=== PATIENT | male | born 1960 | race African-American/Black ===

== ENCOUNTER 2017-01-23 11:12 | Inpatient (IN) ==
--- NOTE | 2017-01-23 12:54 | Emergency Department Note ---
Rj Guerrero Brittany, am scribing for, and in the presence of, Carissa Echeverria DO 12:50. IJuwan Debra, DO, personally performed the services described in this documentation, ascribed by Lynne De La Rosa in my presence, and it is both accurate and complete . Arrival - Arrival Chief Complaint: Non-Specific Stated Complaint: OFF BALANCE/SOB ED Nursing Triage Note: Pt c/o left arm/leg weakness, SOB, lower back pain, and unsteady gait x 1 month. Mode of Arrival: Wheelchair Limitations: No Limitations Source: Patient, RN Notes Reviewed Time Seen by Provider: 01/23/17 12:40 - History of Present Illness HPI Narrative: Patient is a 56 y/o black male presenting to the ED with c/o right upper and lower extremity weakness with an onset of 2 weeks, worsening today. Patient states that he has been "lightheaded" and having to "throw" his right leg when walking due to weakness making ambulation difficult for him. He reports that he thought this weakness would subside, but worsened over the past week after having some upper respiratory symptoms. He complains of having some posterior neck pain and lower back pain that is intermittent, occurring mostly while at work. Patient denies history of NE or CVA. In room upon exam patient is noted to have equal bilateral motor strength that is grossly intact. No deficits noted. No other complaint/pain. Onset (ago): week(s) (2) Allergies/Adverse Reactions: Allergies Allergy/AdvReac Type Severity Reaction Status Date / Time No Known Allergies Allergy Verified 01/23/17 11:20 Home Medications: Home Medications Medication Instructions Recorded Confirmed Type Lisinopril/Hydrochlorothiazide 1 each PO DAILY 01/23/17 01/23/17 History [Lisinopril-Hctz 10-12.5 mg Tab] Meloxicam 15 mg PO DAILY 01/23/17 01/23/17 History Tamsulosin [Flomax] 0.4 mg PO QPM 01/23/17 01/23/17 History Review of System - Review of System 12 point system: reviewed and no additional remarkable complaints except as stated - Review of System Constitutional: Absent: chills, fever Eyes: Absent: vision change Head/Ears/Nose/Throat: Absent: nasal drainage, sore throat Respiratory: Absent: respiratory distress Cardiovascular: Absent: chest pain Gastrointestinal: Absent: abdominal pain, nausea, vomiting, diarrhea, constipation Genitourinary male: Absent: urgency, dysuria, frequency Musculoskeletal: Present: lower back pain, neck pain. Absent: arm pain, leg pain Skin: Absent: rash Neurological: Present: as per HPI, weakness, abnormal gait Psychiatric: Absent: anxiety, depression Hematological/Lymphatic: Absent: easy bleeding, easy bruising Medical,Surgical,& Family Hx - Medical History Cardio: History of: Hypertension - Social History Smoking Status: Never smoker Exam Vital Signs: Vital Signs Temperature 97.9 F 01/23/17 11:23 Pulse Rate 88 01/23/17 11:23 Respiratory Rate 18 01/23/17 11:23 Blood Pressure 156/85 01/23/17 11:23 O2 Sat by Pulse Oximetry 97 01/23/17 11:23 - General General appearance: alert, in no apparent distress, obese (mildly) - Head Head exam: Present: atraumatic, normocephalic, normal inspection - Eye Eye exam: Present: normal appearance, PERRL, EOMI - ENT ENT exam: Present: normal exam, normal oropharynx, mucous membranes moist - Neck Neck exam: Present: normal inspection, full ROM, trachea midline - Chest Chest inspection: Present: normal inspection, symmetric chest wall rise - Respiratory Respiratory exam: Present: normal lung sounds bilaterally. Absent: rales, rhonchi, wheezes - Cardiovascular Cardiovascular exam: Present: regular rate, normal rhythm, normal heart sounds. Absent: murmur, rubs, gallop - Abdominal Exam Abdominal exam: Present: soft, normal bowel sounds. Absent: distention, tenderness - Extremities Exam Extremities exam: Present: normal inspection, full ROM. Absent: tenderness - Back Exam Back exam: Present: normal inspection, full ROM. Absent: tenderness - Neurological Exam Neurological exam: Present: alert, oriented X3, CN II-XII intact. Absent: motor sensory deficit (patient has equal motor strengths bilaterally to upper and lower extremities, no deficits noted) - Psychiatric Psychiatric exam: Present: normal affect, normal mood - Skin Skin exam: Present: warm, dry, intact, normal color Course Course Narrative: spoke with joint cleaning machine operator who will admit pt to hospitlaist service. Results - Labs CBC & BMP: 01/23/17 13:28 01/23/17 13:28 Lab Results: I have reviewed the patients labs Labs: Laboratory Tests 01/23/17 01/23/17 01/23/17 13:28 13:28 13:28 WBC 9.3 RBC 4.80 Hgb 14.2 Hct 43.3 Plt Count 245 MPV 9.1 L INR 1.0 PT Patient/Control Mix 10.7 Circ Anticoag PTT 26.6 Sodium 139 Potassium 4.0 Chloride 104 Carbon Dioxide 28 BUN 16 Creatinine 0.80 Glucose 97 Total Creatine Kinase 590 H CK-MB (CK-2) 7.8 H CK and CKMB Interp 1.3 Troponin I < 0.015 Globulin 4.2 H Albumin/Globulin Ratio 0.8 L - EKG EKG results: interpreted by ERMD, no acute changes - Diagnostic Findings Procedure: Chest x-ray: image reviewed by me Disposition Clinical Impression: Elevated CK, Dizziness Case discussed with: patient, patient's family Disposition: Still a Patient Condition: Stable Time of Disposition: 14:52
[2017-01-23 13:35] LABS: Basophils % 0.3 % (0.0-0.8); Eosinophils # 0.2 10*3/uL (0.0-0.87); Hematocrit 43.3 VOL% (42.0-52.0); Hemoglobin 14.2 GM/DL (14.0-18.0); Immature Granulocytes % 0.2 %; Immature Granulocytes Absolute 0.02 #; Lymphocytes # 2.3 10*3/uL (1.4-4.0); Lymphocytes % 24.4 % (21.2-54.2); Mean Corpuscular HGB Conc 32.8 GM/DL (32-36); Mean Corpuscular Hemoglobin 30 PG (27-34); Mean Corpuscular Volume 90.2 FL (87-102); Mean Platelet Volume 9.1 FL (9.6-12.0); Monocytes # 0.6 10*3/uL (0.11-0.8); Neutrophils # 6.2 10*3/uL (1.4-7.4); Neutrophils % 67.1 % (38.7-73.9); Platelet Count 245 T/CUMM (130-400); Red Cell Distribution Width 13.1 % (9.3-17.3); White Blood Count 9.3 T/CUMM (4-12)
--- NOTE | 2017-01-23 13:43 | CT Report ---
History: Right-sided weakness. Unsteady gait Date: 01/23/2017 Study: CT head without contrast Comparison exam: No previous head CT available Transaxial CT sections were obtained through the head without IV contrast. This CT exam was performed using one or more the following dose reduction techniques: Automated exposure control, adjustment of the MA and/or KV according to patient size, or use of iterative reconstruction technique. The exam was performed on an outpatient basis through the emergency room. The ventricles are midline in position without evidence of hydrocephalus. There is no definite mass or parenchymal hemorrhage on this noncontrast study. There is no gross CT evidence of acute cortical stroke. There is no extra-axial hematoma. There is no acute abnormality of the calvarium. Impression: No acute intracranial abnormalities identified. PROCEDURE INTERPRETED AT [facility] DEPARTMENT OF RADIOLOGY Final Report Signed by: Dr. Rena Pyle
[2017-01-23 13:45] LABS: PT Patient Result 10.7 SECS; Partial Thromboplastin Time 26.6 SECS (0-40)
[2017-01-23 14:05] LABS: Alanine Aminotransferase 38 U/L (16-61); Albumin 3.7 G/DL (3.4-5.0); Alkaline Phosphatase 70 U/L (45-117); Aspartate Amino Transferase 24 U/L (0-37); Bilirubin,Total < 0.39 MG/DL (0.2-1.0); Blood Urea Nitrogen 16 MG/DL (7-18); CKMB % 1.3 %; Calcium 8.9 MG/DL (8.5-10.1); Glucose 97 MG/DL (74-106); Osmolality,Calculated 277.5 MOS/KG (273-304); Sodium 139 MMOL/L (136-145); Total Protein 7.9 G/DL (6.4-8.3); Troponin I Only < 0.015 NG/ML (0.00-0.045)
[2017-01-23] MEDS ORDERED: KETOROLAC 30 MG/1 ML VIAL IM STA (14:23)
[2017-01-23] MEDS ORDERED: MECLIZINE 25 MG TABLET PO STA (14:52)
[2017-01-23] MEDS ORDERED: LABETALOL 20 MG/4 ML SYRINGE IV PRN (15:19)
[2017-01-23] MEDS ORDERED: MECLIZINE 25 MG TABLET ONE (15:37)
--- NOTE | 2017-01-23 15:43 | XRay Report ---
History: Shortness of breath. History of hypertension Date: 01/23/2017 Study: Chest x-ray AP portable Comparison exam: No previous chest x-ray currently available for comparison purposes. The cardiac silhouette is upper normal in size. There is no mediastinal mass. The pulmonary vasculature is not engorged. The lungs and pleural spaces are clear. There is mild thoracic spondylosis. Impression: No acute cardiopulmonary process PROCEDURE INTERPRETED AT [facility] DEPARTMENT OF RADIOLOGY Final Report Signed by: Dr. Rena Pyle
[2017-01-23 16:00] LABS: Risk Ratio 4.16; VLDL CHOLESTEROL 20.6 MG/DL
--- NOTE | 2017-01-23 16:22 | Hospitalist History & Physical ---
<Azra Marques - Last Filed: 01/23/17 15:39> Assessment and Plan - Time spent with patient Time spent with patient: Greater than 30 minutes (1) Right-sided muscle weakness Status: Acute Assessment and plan: Mr. Prince is a 56-year-old -[place] male with history of hypertension , chronic migraines, chronic recurrent UTIs presenting to the ED with a 2 week history of progressive unsteady gait and weakness on the right upper and lower extremity. He has complained of migraines for the last month and low back pain starting 2 weeks ago. He did have a viral illness that preceded this weakness. Patient will undergo MRI of the head and low back tomorrow. Consult neurology for evaluation. Repeat labs in the morning. Restart his home hypertensive medications. He is being admitted by Dr. King and further recommendations to follow. Current Visit: Yes (2) Unsteady gait Status: Acute Current Visit: Yes (3) Migraines Status: Acute Current Visit: Yes (4) Low back pain Status: Acute Current Visit: Yes (5) Elevated CK Status: Acute Current Visit: Yes (6) Dizziness Status: Acute Current Visit: Yes History of Present Illness Chief complaint: Right-sided weakness and unsteady gait History of present illness: Mr. Prince is a 56 year old male with history of hypertension, chronic migraines, chronic UTIs presenting to the ED with a 2 week history of progressive right upper and lower extremity weakness and unsteady gait. Patient states approximately 1 month ago he started getting migraines again and he started having lower back pain. He describes it as a soreness across the low back that is equal on both sides. He is nontender along the spinous processes and he denies straining or hurting himself at any time. 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 Patient states a little over 2 weeks ago a viral illness spread through [employer] and most of the people he worked with were out of work at least one day with nausea, vomiting, and diarrhea. Patient thinks the weakness started after then and then progressed. Patient denies falling but he does have difficulty walking where he describes having to drag his right leg to ambulate. He denies blurry vision, difficulty swallowing, chest pain, shortness of breath, abdominal pain, constipation, or lower extremity edema. Patient says he does urinate frequently but denies pain or burning. CT of the head in the ED is negative, he is afebrile and vital signs stable, cbc and chemistry are normal. Patient does have a total creatinine kinase of 590 with an elevated CK-MB of 7.8. His troponins are normal at this time. EKG was basically normal. Upon exam, patient was significantly weaker on the right side with the leg weaker than the arm. He does have an unsteady gait and difficulty turning to the right. Patient might have mild hyperreflexia on the right lower extremity. After discussion with Dr. Echeverria the ED physician and Dr. King the admitting hospitalist, is agreed patient would be admitted for further evaluation. Home Medications Medication Instructions Recorded Confirmed Type Lisinopril/Hydrochlorothiazide 1 each PO DAILY 01/23/17 01/23/17 History [Lisinopril-Hctz 10-12.5 mg Tab] Meloxicam 15 mg PO DAILY 01/23/17 01/23/17 History Tamsulosin [Flomax] 0.4 mg PO QPM 01/23/17 01/23/17 History Allergies Allergy/AdvReac Type Severity Reaction Status Date / Time No Known Allergies Allergy Verified 01/23/17 11:20 Medical,Surgical,& Family Hx - Medical History Cardio: History of: Hypertension Neurology: History of: Migraine Genitourinary: History of: Recurring Urinary Tract Infections - Surgical History Abdominal Surgeries: Patient denies: Abdominal Surgery, Colonoscopy Orthopedic Surgeries: Patient denies;: Orthopedic Surgery - Family History Family History: Reports;: Family Cancer - Social History Smoking Status: Never smoker Frequency of Alcohol Use: None Type of Drug Use: None Marital Status: Lives With:: Spouse Functional capacity: independent ambulation Review of systems: Complete 10 system review of systems was obtained and pertinent negatives and positives per HPI Exam - Constitutional Exam: Constitutional System: No distress. No tremulousness. Head: Normocephalic, atraumatic. Ears, Nose and Throat System: No evidence of Otitis or Mastoiditis. No epistaxis or discharge Eyes System: Pupils equal, round, and reactive. Extraocular muscles intact. Neck: Supple, without adenopathy, No jugular venous distention. No thyromegaly, neck mass, or prior surgery apparent. Respiratory System: Chest clear to auscultation. Cardiovascular System: Heart with regular rate and rhythm. No murmur. GI System: Abdomen soft, nontender. Normo active bowel sounds present. Musculoskeletal System: limbs with no pedal edema. Full distal pulses. Mild hyperreflexia on the right lower extremity, 4/5 right upper and lower extremity , 5/5 left upper lower extremity Neurological System: No discernable sensory deficit. No aphasia, mild hyperreflexia on the right lower extremity Psychiatric System: Conversation is rational Results - Labs CBC & BMP: 01/23/17 13:28 01/23/17 13:28 Lab Results: I have reviewed the past 24 hour labs - EKG EKG shows: sinus rhythm - Diagnostic Findings Procedure: Chest x-ray: report reviewed by me (No acute process), CT: report reviewed by me (No acute intracranial abnormalities) <Saturnino King - Last Filed: 01/23/17 16:33> History of Present Illness History of present illness: Mr. Prince is a 56 year old male Results - Labs CBC & BMP: 01/23/17 13:28 01/23/17 13:28
[2017-01-23] MEDS ORDERED: ONDANSETRON 4 MG/2 ML VIAL IV PRN (16:57)
[2017-01-23] MEDS ORDERED: ACETAMINOPHEN 325 MG TABLET PO PRN (16:57)
[2017-01-23] MEDS ORDERED: ZALEPLON 5 MG CAPSULE PO PRN (16:57)
[2017-01-23 17:14] LABS: Apearance,Urine CLEAR (Clear); Bilirubin,Urine Negative (Negative); Blood, Urine Negative (Negative); Glucose,Urine (UA) Negative (Negative); Ketones,Urine 5 mg/dL (Negative); Mucus,Urine Occasional /LPF (Occasional); Nitrite,Urine Negative (Negative); Protein,Urine Negative; RBC,Urine 1 /HPF (0-4); Squamous Epithelial Cell,Urine Occasional /HPF (0-10); Urine Color Yellow (Yellow); Urine Specific Gravity 1.016 (1.001-1.035); Urine Urobilinogen < 2.0 EU/DL (0.2-1.0); WBC,Urine 3 /HPF (0-6)
[2017-01-23 17:17] LABS: Barbiturates Screen,Urine Negative (Negative); Benzodiazepines Screen,Urine Negative (Negative); Cannabinoid Screen,Urine Negative (Negative); Opiate Screen,Urine Negative (Negative); Phencyclidine Screen,Urine Negative (Negative)
[2017-01-23] MEDS: ENOXAPARIN 40 MG/0.4 ML SYRINGE SUBCUT SCH (17:32)
[2017-01-23] MEDS: SODIUM CHLORIDE 0.9% 1,000 ML IV SCH (17:33)
[2017-01-23] MEDS: PANTOPRAZOLE 40 MG TABLET PO SCH (17:33)
--- NOTE | 2017-01-23 17:33 | Neurology Consult Note ---
History of Present Illness History of present illness: Mr. Prince is a 56 year old right-handed -Citizen Of [place] gentleman with history of hypertension, chronic migraines, chronic UTIs presenting to the ED with a 2 week history of progressive generalized weakness more so in the lower extremities and unsteady gait, difficulty in walking. Patient states approximately 1 month ago he started getting migraines again and he started having lower back pain. He describes it as a soreness across the low back that is equal on both sides. He is nontender along the spinous processes and he denies straining or hurting himself at any time. 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 Patient states a little over 2 weeks ago a viral illness spread through [employer] and most of the people he worked with were out of work at least one day with nausea, vomiting, and diarrhea. Patient thinks the weakness started after then and then progressed. Patient denies falling but he does have difficulty walking where he describes having to drag his right leg to ambulate at time. He denies blurry vision, difficulty swallowing, chest pain, shortness of breath, abdominal pain, constipation, or lower extremity edema. Patient says he does urinate frequently but denies pain or burning. CT of the head in the ED is negative, he is afebrile and vital signs stable, cbc and chemistry are normal. Home Medications Medication Instructions Recorded Confirmed Type Lisinopril/Hydrochlorothiazide 1 each PO DAILY 01/23/17 01/23/17 History [Lisinopril-Hctz 10-12.5 mg Tab] Meloxicam 15 mg PO DAILY 01/23/17 01/23/17 History Tamsulosin [Flomax] 0.4 mg PO QPM 01/23/17 01/23/17 History Allergies Allergy/AdvReac Type Severity Reaction Status Date / Time No Known Allergies Allergy Verified 01/23/17 11:20 12 point system: reviewed and no additional remarkable complaints except as stated Medical,Surgical,& Family Hx - Medical History Cardio: History of: Hypertension Neurology: History of: Migraine HEENT: History of: Eye Problem (wears glasses) Genitourinary: History of: Recurring Urinary Tract Infections Musculoskeletal: History of: Back/Neck Problems (pain) - Surgical History Abdominal Surgeries: Patient denies: Abdominal Surgery, Colonoscopy Orthopedic Surgeries: Patient denies;: Orthopedic Surgery - Family History Family History: Reports;: Family Cancer - Social History Smoking Status: Never smoker Frequency of Alcohol Use: None Type of Drug Use: None Exam - Constitutional Vitals: Period Temp Pulse Resp BP Sys/Ordoñez Pulse Ox Last 24 Hr 97.0 F-97.9 F 82-88 16-20 156-159/85-87 98 Exam: GENERAL: Patient is in no acute distress. NECK: Neck is supple. There is no JVD. No carotid bruits present. No thyroid masses. CVS: First and second heart sounds are normal. There is no S3 present. Regular rate and rhythm. RESPIRATORY: Lungs are clear to auscultation without any rales or rhonchi. ABDOMEN: Soft and non-tender. Bowel sounds are present. There is no hepatosplenomegaly. EXT: There is no palpable edema. Peripheral pulses are present. Skin: No rashes Central Nervous system: General: Alert, awake and Oriented x 3 Speech: Fluent Comprehension: Intact and normal Facial expressions: Normal Cranial Nerves: CN1/Olfactory: Normal CN II/ Optic: Normal, Visual Rivera unreliable CN III, and : NASEEM & EOMI CN V: Normal & intact CN VII: face is symmetric CNVIII: Normal CN XI/X/XI/XII: Intact and Normal Motor: Bulk and Tone is normal. Strength in the right 5/5 Strength in the left 5/5 Sensory: Grossly intact for all the modalities of PP, LT and temp sense Reflexes: 1+ and symmetrical Cerebellar function: Normal finger to nose and heel to crum testing. Toes: Equivocal Gait: Normal heel to heel and toe to toe and tandem walk. Results - Labs CBC & BMP: 01/23/17 13:28 01/23/17 13:28 Assessment and Plan (1) Generalized weakness Status: Acute Assessment and plan: Etiology is not clear. Symptoms are very subjective. Symptoms does not follow any specific myotomal or dermatomal distribution. Multiple MRIs has been ordered by primary care physician. Recommend PT and OT We will follow up on the testing. Current Visit: Yes
[2017-01-23] MEDS: TAMSULOSIN 0.4 MG CAPSULE PO SCH (18:13)
[2017-01-24 06:20] LABS: Basophils % 0.6 % (0.0-0.8); Eosinophils # 0.2 10*3/uL (0.0-0.87); Eosinophils % 3.6 % (0.00-10.9); Hemoglobin 13.2 GM/DL (14.0-18.0); Immature Granulocytes % 0.3 %; Immature Granulocytes Absolute 0.02 #; Mean Corpuscular HGB Conc 32.2 GM/DL (32-36); Mean Corpuscular Hemoglobin 29 PG (27-34); Mean Corpuscular Volume 91.1 FL (87-102); Mean Platelet Volume 9.4 FL (9.6-12.0); Monocytes # 0.5 10*3/uL (0.11-0.8); Monocytes % 7.7 % (1.7-12.7); Neutrophils # 3.9 10*3/uL (1.4-7.4); Neutrophils % 57.8 % (38.7-73.9); Platelet Count 227 T/CUMM (130-400); Red Cell Distribution Width 13.1 % (9.3-17.3); White Blood Count 6.7 T/CUMM (4-12)
[2017-01-24 06:55] LABS: Alanine Aminotransferase 31 U/L (16-61); Albumin 3.5 G/DL (3.4-5.0); Alkaline Phosphatase 64 U/L (45-117); Aspartate Amino Transferase 17 U/L (0-37); Blood Urea Nitrogen 14 MG/DL (7-18); Calcium 8.5 MG/DL (8.5-10.1); Glucose 104 MG/DL (74-106); Osmolality,Calculated 279.4 MOS/KG (273-304); Potassium 4.3 MMOL/L (3.5-5.1); Sodium 140 MMOL/L (136-145); Total Protein 6.7 G/DL (6.4-8.3); Troponin I Only < 0.015 NG/ML (0.00-0.045)
--- NOTE | 2017-01-24 07:46 | Ultrasound Report ---
US carotid duplex BI Indication: Left-sided weakness Comparison: None. Technique: Using transcutaneous probe, routine carotid arterial duplex ultrasound performed. Ultrasound images were captured and stored. Estimation of stenosis will be made using indirect NASCET criteria. Ultrasound images were captured and stored. Findings: Grayscale and color Doppler findings: Minimal foci of echogenic plaque are noted within the right and left carotid artery bulb. Peak systolic velocities are as follows (centimeters per second): Right CCA: 61. Right proximal ICA: 70. Right distal ICA: 67. Right ICA/CCA ratio: 1.1. Left CCA: 86. Left proximal ICA: 42. Left distal ICA: 81. Left ICA/CCA ratio: 0.9. External carotid arteries: External carotid arteries are bilaterally patent. Vertebral arteries: Vertebral arteries bilaterally demonstrate antegrade flow. Impression: 1.No hemodynamically significant stenosis is estimated to involve either carotid arterial system. 01/24/2017 7:43 AM PROCEDURE INTERPRETED AT [facility] DEPARTMENT OF RADIOLOGY Final Report Signed by: Dr. Weston Vo
[2017-01-24] MEDS: PANTOPRAZOLE 40 MG TABLET PO SCH (08:52)
[2017-01-24] MEDS: LISINOPRIL/HCTZ 10-12.5 MG TABLET PO SCH (08:53)
--- NOTE | 2017-01-24 10:41 | Hospitalist Progress Note ---
Assessment and Plan (1) Dizziness Status: Acute Assessment and plan: He is not presently experiencing any dizziness. Current Visit: Yes (2) Right-sided muscle weakness Status: Acute Assessment and plan: It is not clear if his weakness is right-sided and/or generalized. It is unchanged since hospitalization. Evaluation is ongoing as per neurology. Current Visit: Yes (3) Unsteady gait Status: Acute Assessment and plan: He has not walked since his hospitalization. Evaluation as indicated above. Current Visit: Yes (4) Migraines Status: Acute Assessment and plan: He is not presently experiencing headaches. Current Visit: Yes Hospitalist: Subjective Interval history: The patient was hospitalized here yesterday with a 2 week history of progressive generalized weakness, more so in the lower extremities, and unsteady gait. He has a previously known history of migraine headaches which he notes began recurring approximately 1 month prior to admission. Approximately 2 weeks prior to admission he experienced a viral illness suggestive of a viral gastroenteritis. The patient believes his weakness began after that recent viral illness. He has been seen in consultation by Dr. Alejo of neurology. His preliminary evaluation has not demonstrated an etiology for the patient's symptoms. MRI scans of the head, cervical spine, and lumbar spine are pending. The patient's symptoms are unchanged since hospitalization. Exam - Constitutional Vitals: Period Temp Pulse Resp BP Sys/Ordoñez Pulse Ox Last 24 Hr 97.0 F-98.6 F 80-88 16-20 119-159/61-87 95-98 General appearance: normal weight, no acute distress - Head Head exam: Present: normal inspection, normocephalic - Eye Eye exam: Present: EOMI Pupils: Present: NASEEM - Neck Neck exam: Present: normal inspection - Respiratory Respiratory exam: Present: clear to auscultation bilaterally - Cardiovascular Cardiovascular exam: Present: regular rate and rhythm - GI/Abdominal GI/Abdominal exam: Present: normal bowel sounds, soft, other (Nontender with no palpable masses or hepatosplenomegaly.) - Back Exam Back exam: Present: normal inspection - Neurological Exam Neurological exam: Present: alert, oriented X3 - Psychiatric Psychiatric exam: Present: normal affect, normal mood - Skin Skin exam: Present: normal color, warm, dry Results - Labs CBC & BMP: 01/24/17 05:46 01/24/17 05:46
--- NOTE | 2017-01-24 12:48 | EKG Report ---
Stationary ECG Study [facility] ER Test Date: 01/23/2017 11:23:29 AM Pat Name: ALYSSIA CRABTREE Department: Room: 216 Gender: M Pastrycook: Ebenezer Tom : 1960 Requested by: Carissa Echeverria Order Number: [id number] Reading MD: KIN MCCRACKEN Intervals [place] Rate: 88 P: 44 IN: 132 QRS: 41 QRSD: 88 T: 69 QT: 336 QTc: 382 Interpretive Statements SINUS RHYTHM SEPTAL INFARCT, PROBABLY OLD Electronically Signed On 01-27-17 09:37:25 CDT by KIN MCCRACKEN [email or web address]
--- NOTE | 2017-01-24 15:29 | Neurology Progress Note ---
Neurology - PN : Subjective Interval history: Patient seems to be doing okay. No new problems reported. Feeling better. Walking better. Exam (Progress Note) - Constitutional Vitals: Period Temp Pulse Resp BP Sys/Ordoñez Pulse Ox Last 24 Hr 97.0 F-98.6 F 80-88 16-20 119-159/61-87 95-100 Exam: GENERAL: Patient is in no acute distress. NECK: Neck is supple. There is no JVD. No carotid bruits present. No thyroid masses. CVS: First and second heart sounds are normal. There is no S3 present. Regular rate and rhythm. RESPIRATORY: Lungs are clear to auscultation without any rales or rhonchi. ABDOMEN: Soft and non-tender. Bowel sounds are present. There is no hepatosplenomegaly. EXT: There is no palpable edema. Peripheral pulses are present. Skin: No rashes Central Nervous system: General: Alert, awake and Oriented x 3 Speech: Fluent Comprehension: Intact and normal Facial expressions: Normal Cranial Nerves: CN1/Olfactory: Normal CN II/ Optic: Normal, Visual Rivera unreliable CN III, and : NASEEM & EOMI CN V: Normal & intact CN VII: face is symmetric CNVIII: Normal CN XI/X/XI/XII: Intact and Normal Motor: Bulk and Tone is normal. Strength in the right 5/5 Strength in the left 5/5 Sensory: Grossly intact for all the modalities of PP, LT and temp sense Reflexes: 1+ and symmetrical Cerebellar function: Normal finger to nose and heel to crum testing. Toes: Equivocal Gait: Normal heel to heel and toe to toe and tandem walk. Results - Labs CBC & BMP: 01/24/17 05:46 01/24/17 05:46 Assessment and Plan (1) Generalized weakness Status: Acute Assessment and plan: MRI of the brain is pending. I do not expect anything abnormal on the MRI Defer further management to PCP Can be reached over the phone if needed. Sign off please call call as needed Current Visit: Yes
[2017-01-24] MEDS: ENOXAPARIN 40 MG/0.4 ML SYRINGE SUBCUT SCH (16:28)
[2017-01-24] MEDS: SODIUM CHLORIDE 0.9% 1,000 ML IV SCH (16:31)
[2017-01-24] MEDS: TAMSULOSIN 0.4 MG CAPSULE PO SCH (21:01)
--- NOTE | 2017-01-24 22:01 | Magnetic Resonance Report ---
History: Right-sided weakness. Unsteady gait Date: 01/24/2017 Study: MRI brain without contrast Comparison exam: CT head 01/23/2017 The brain was imaged in 3 planes on the 1.2 Miryam magnet without IV contrast, to include diffusion, T2, FLAIR, and pre-and postcontrast T1-weighted sequences. The ventricles are midline in position without evidence of hydrocephalus. There is no evidence of acute ischemia on the diffusion sequence. There is no Chiari I malformation. There is no gross pituitary mass. There is no parenchymal hemorrhage or area of mass effect. There is no extra-axial hematoma. There is a normal flow void in the superior sagittal sinus. There is no gross flow abnormality in the [place] area. There is [id number] mucosal thickening in the left frontal, bilateral ethmoid, and bilateral maxillary sinuses. There is also mild mucosal thickening in the sphenoid sinuses. Impression: No acute intracranial process. Sinusitis which may be chronic or allergic PROCEDURE INTERPRETED AT [facility] DEPARTMENT OF RADIOLOGY Final Report Signed by: Dr. Rena Pyle
--- NOTE | 2017-01-24 22:42 | Magnetic Resonance Report ---
History: Back pain. Weakness right leg Date: 01/24/2017 Study: MRI sacrum without contrast Comparison exam: No previous sacral MRI or CT The sacrum was imaged in 3 planes on a 1.2 Miryam magnet without IV contrast, to include T1, T2, and STIR images. There is a nonspecific localized area of marrow edema involving the left sacral wing superiorly, abutting the superior aspect of the left sacroiliac joint. This area of marrow edema measures 13 mm diameter. No gross fracture plane is seen. There is no marrow abnormality otherwise. There is no abnormal joint effusion or abnormal joint erosion. There is no sacral spinal stenosis or soft tissue mass. Impression: Small localized area of marrow edema involving the superior-lateral aspect of the left sacral ala. This could represent marrow contusion. This could represent very early sacral insufficiency fracture without visualized trabecular fracture plane. There is no obvious focal mass to suggest metastatic disease, though consider further evaluation with nuclear medicine bone scan if the patient has known or suspected underlying malignancy. No significant abnormality otherwise PROCEDURE INTERPRETED AT [facility] DEPARTMENT OF RADIOLOGY Final Report Signed by: Dr. Rena Pyle
--- NOTE | 2017-01-24 22:56 | Magnetic Resonance Report ---
History: Weakness right leg Date: 01/24/2017 Study: MRI lumbar spine with and without IV contrast Comparison exam: No previous lumbar MRI available The lumbar spine was imaged in the sagittal and axial planes on the 1.2 Miryam open magnet with and without without 20 ml Dotarem contrast . Sequences include T1 pre and postcontrast, T2, and STIR images. There is no compression fracture or spondylolisthesis. There is scattered mild to moderate lumbar spondylosis. The lumbar disks are well-maintained in height. There is a small Schmorl's node posteriorly and inferiorly at L1 and also inferiorly at L5. The conus medullaris terminates at the L1-L2 level and is without abnormal mass lesion or abnormal enhancement. T12-L1: Minimal posterior diffuse disc bulging without high-grade spinal stenosis L1-L2: Mild narrowing of spinal canal related to mild posterior diffuse bulging disc and osteophyte as well as mild ligament flavum and facet hypertrophy. There is mild neural foraminal narrowing on the left secondary to posterior lateral bulging disc and facet hypertrophy L2-L3: There is mild narrowing of spinal canal related to minimal posterior bulging disc and osteophyte as well as moderate ligament flavum and facet hypertrophy. There is mild to moderate narrowing of the inferior recess of either neural foramen secondary to posterior lateral bulging disc and facet hypertrophy. L3-L4: Mild narrowing of spinal canal related to mild posterior diffuse disc bulging as well as mild ligamentum flavum and facet hypertrophy. There is moderate narrowing of the inferior recess of either neural foramen secondary to posterior lateral bulging disc and facet hypertrophy L4-L5: Mild spinal stenosis related to mild posterior diffuse disc bulging as well as mild ligament flavum and facet hypertrophy. There is moderate neural foraminal narrowing bilaterally secondary to posterior lateral bulging disc and facet hypertrophy. There could be contact of the right L4 nerve root just lateral to its neural foramen secondary to posterolateral bulging disc. L5-S1: Mild posterior diffuse disc bulging without significant spinal stenosis. There is mild neural foraminal narrowing on the right and moderate neural foraminal narrowing on the left related to facet hypertrophy. Impression: Multilevel mild spinal stenosis related to diffuse disc bulging as well as hypertrophic changes of posterior elements. No mir disc extrusion. No obvious enhancing mass of the conus medullaris. Multilevel neural foraminal narrowing as detailed above. Please see the above discussion for information regarding individual levels PROCEDURE INTERPRETED AT [facility] DEPARTMENT OF RADIOLOGY Final Report Signed by: Dr. Rena Pyle
[2017-01-25] MEDS: SODIUM CHLORIDE 0.9% 1,000 ML IV SCH ×2 (06:24→23:15)
[2017-01-25] MEDS: LISINOPRIL/HCTZ 10-12.5 MG TABLET PO SCH (08:30)
[2017-01-25] MEDS: PANTOPRAZOLE 40 MG TABLET PO SCH (08:30)
--- NOTE | 2017-01-25 10:15 | Hospitalist Progress Note ---
Assessment and Plan (1) Dizziness Status: Acute Assessment and plan: He is not presently experiencing any dizziness. Current Visit: Yes (2) Right-sided muscle weakness Status: Acute Assessment and plan: It is not clear if his weakness is right-sided and/or generalized. It is improved since hospitalization. Evaluation is ongoing as per neurology. Current Visit: Yes (3) Unsteady gait Status: Acute Assessment and plan: Resolved. Current Visit: Yes (4) Migraines Status: Acute Assessment and plan: He is not presently experiencing headaches. Current Visit: Yes Hospitalist: Subjective Interval history: The patient was hospitalized here 2 days ago with a 2 week history of progressive generalized weakness more so in the lower extremities, and unsteady gait previously he had a previously known history of migraine headaches which he notes began recurring approximately 1 month prior to admission. Approximately 2 weeks prior to admission experienced a viral illness suggestive of a viral gastroenteritis. The patient believes his weakness began after that recent viral illness. He has been seen in consultation by Dr. Alejo of neurology. An MRI scan of the head was unremarkable. MRI scans of the cervical and lumbosacral spine demonstrated evidence of lumbosacral disc disease. Radiology has recommended that a nuclear bone scan be performed. The patient states that he feels better today. I hope to be able to send him home later today, pending the results of the nuclear bone scan and neurology's recommendations. Exam - Constitutional Vitals: Period Temp Pulse Resp BP Sys/Odroñez Pulse Ox Last 24 Hr 97.9 F-99 F 78-87 14-36 115-155/56-87 94-100 General appearance: no acute distress - Head Head exam: Present: normal inspection, normocephalic - Eye Eye exam: Present: EOMI Pupils: Present: NASEEM - Neck Neck exam: Present: normal inspection - Respiratory Respiratory exam: Present: clear to auscultation bilaterally - Cardiovascular Cardiovascular exam: Present: regular rate and rhythm - GI/Abdominal GI/Abdominal exam: Present: normal bowel sounds, soft - Extremities Exam Extremities exam: Present: normal inspection - Back Exam Back exam: Present: normal inspection - Neurological Exam Neurological exam: Present: alert, oriented X3 - Psychiatric Psychiatric exam: Present: normal affect, normal mood - Skin Skin exam: Present: normal color, warm, dry Results - Labs CBC & BMP: 01/24/17 05:46 01/24/17 05:46
--- NOTE | 2017-01-25 13:32 | Nuclear Medicine Report ---
Whole body bone scan. Indication: Abnormal sacrum on MRI. Following the intravenous administration of 30 mCi technetium 99m MDP, whole body bone imaging was performed in the standard manner. Comparison is made with a previous sacral MRI of January 24, 2017. There is focal radiotracer uptake in the left maxilla, probably related dental disease. There is uptake present within both shoulders, at the acromioclavicular joints, which is symmetric, suggestive of degenerative change. There is mild increased uptake at both sternoclavicular joints, and both knees, suggestive of osteoarthritis. There is vague increased uptake at the mid lumbar level, likely related to degenerative change. There is mild to moderate increased radiotracer uptake in a vertical linear configuration along the posterior aspect of the sacrum, and along both SI joint areas. This is a symmetric process. Impression: Suspected left maxillary dental disease. Scattered osteoarthritic change of the joints. Mild focal irregular activity of the spinal column at the mid lumbar level, likely related to osteoarthritis. Linear sacral increased uptake, having a pattern suggestive of insufficiency fracture. Careful clinical correlation recommended. PROCEDURE INTERPRETED AT [facility] DEPARTMENT OF RADIOLOGY Final Report Signed by: Dr. Richa Fine
[2017-01-25] MEDS: ENOXAPARIN 40 MG/0.4 ML SYRINGE SUBCUT SCH (16:22)
[2017-01-25] MEDS: TAMSULOSIN 0.4 MG CAPSULE PO SCH (17:59)
[2017-01-26 08:21] VITALS: BP 156/87
[2017-01-26] MEDS: PANTOPRAZOLE 40 MG TABLET PO SCH (08:59)
[2017-01-26] MEDS: LISINOPRIL/HCTZ 10-12.5 MG TABLET PO SCH (08:59)
--- NOTE | 2017-01-26 10:04 | Discharge Summary ---
Hospital Course - Hospital Course Hospital Course: Mr. Prince was hospitalized with a 2 week history of progressive generalized weakness of his lower extremities and unsteady gait. He had a previously known history of migraine headaches. He experienced a viral gastroenteritis approximately 2 weeks prior to admission following which the above symptoms appeared. He was seen in consultation by Dr. Alejo of neurology. MRI of the brain was normal MRI of the cervical and lumbosacral spine demonstrated evidence of lumbosacral disc disease but no evidence of nerve impingement. Symptoms resolved during his hospitalization at the time of his discharge she was comfortable with no complaints. Diagnosis - Discharge Diagnosis (1) Dizziness Status: Resolved (2) Right-sided muscle weakness Status: Resolved (3) Unsteady gait Status: Resolved (4) Migraines Status: Resolved Discharge Plan - Discharge Data Condition at Discharge: Stable Discharge Diet: advance to your usual diet Activity: resume usual activities as tolerated - Discharge Medications Continue Meloxicam 15 mg PO DAILY Tamsulosin [Flomax] 0.4 mg PO QPM Lisinopril/Hydrochlorothiazide [Lisinopril-Hctz 10-12.5 mg Tab] 1 each PO DAILY - Follow Up or Referral - Forms/Instructions Exam - Constitutional Vitals: Period Temp Pulse Resp BP Sys/Ordoñez Pulse Ox Last 24 Hr 96.7 F-98.4 F 80-86 18-20 137-174/73-96 95-100 General appearance: no acute distress - Head Head exam: Present: normal inspection, normocephalic - Eye Eye exam: Present: EOMI Pupils: Present: NASEEM - Neck Neck exam: Present: normal inspection - Respiratory Respiratory exam: Present: clear to auscultation bilaterally - Cardiovascular Cardiovascular exam: Present: regular rate and rhythm - GI/Abdominal GI/Abdominal exam: Present: normal bowel sounds, soft - Extremities Exam Extremities exam: Present: normal inspection - Back Exam Back exam: Present: normal inspection - Neurological Exam Neurological exam: Present: alert, oriented X3, normal gait - Psychiatric Psychiatric exam: Present: normal affect, normal mood - Skin Skin exam: Present: normal color, warm, dry Discharge Results Procedures and tests throughout hospitalization: Pending Orders 01/27/17 04:00 Basic Metabolic Panel IN AM CBC [Comp Blood Count Auto Diff] IN AM DS: Provider Date of admission: 01/23/17 15:13 Primary care physician: . No PCP Attending physician on admission: Saturnino King MD Consults: 01/23/17 15:20 Consult to Case Mgmt/Social Srvs [CONS] Routine Reason for Case Mgmt/Social Srvs: Discharge Planning Consult to Occupational Therapy [CONS] Routine Reason for Occupational Therapy: Evaluate and Treat Consult Comment: Stroke Consult to Physical Therapy [CONS] Routine Reason for Physical Therapy: Evaluate and Treat Consult Comment: stroke 01/23/17 16:57 Consult to Physician [CONS] Routine Comment: dizziness and left sided weakness Consulting Provider: Denton Alejo Person Notified: Dr. Rich on rounds Date Notified: 01/23/17 Time Notified: 17:20 01/23/17 17:09 Consult to Dietitian [CONS] Routine Reason for Dietitian: Dietary Consult Discharging clinician: Samuel Do Expected date of discharge: 01/26/17
== END 2017-01-26 10:53 | disposition home or self-care (01) | DRG 556 ==
LOC: SUATTDRO → N.ED 11:12 → SUATTDRO 15:13 → N.EDINP 15:13 → N.2E 15:23
PROVIDERS: ADMIT Internal Medicine

== ENCOUNTER 2021-12-25 11:40 | Observation (INO) ==
[2021-12-25 13:31] LABS: Albumin 2.4 G/DL (3.4-5.0); Bilirubin,Total 1.1 MG/DL (0.20-1.00); Calcium 8.6 MG/DL (8.5-10.1); Osmolality,Calculated 270.1 MOS/KG (273-304); Potassium 3.7 MMOL/L (3.5-5.1); Total Protein 7.9 G/DL (6.4-8.2)
[2021-12-25] MEDS ORDERED: ACETAMINOPHEN 500 MG TABLET PO STA (14:53)
[2021-12-25 15:43] LABS: Basophils # 0.1 10*3/uL (0.0-0.2); Basophils % 0.8 % (0.0-0.8); Eosinophils # 1.1 10*3/uL (0.0-0.87); Eosinophils % 6.7 % (0.00-10.9); Hematocrit 40.7 VOL% (42.0-52.0); Immature Granulocytes % 1.1 %; Immature Granulocytes Absolute 0.18 #; Lymphocytes # 1.1 10*3/uL (1.4-4.0); Lymphocytes % 6.9 % (21.2-54.2); Mean Corpuscular HGB Conc 31.9 GM/DL (32-36); Mean Corpuscular Volume 88.3 FL (87-102); Mean Platelet Volume 10.2 FL (9.6-12.0); Monocytes % 7.2 % (1.7-12.7); Neutrophils % 77.3 % (38.7-73.9); Platelet Count 259 T/CUMM (130-400); Red Blood Count 4.61 MC/CUMM (3.8-5.5); Red Cell Distribution Width 14.7 % (9.3-17.3); White Blood Count 16.4 T/CUMM (4-12)
[2021-12-25] MEDS ORDERED: LACTULOSE 20 GM/30 ML UDCUP PO PRN (15:55)
[2021-12-25] MEDS ORDERED: GLUCAGON 1 MG VIAL IM PRN (15:55)
[2021-12-25] MEDS ORDERED: DOCUSATE SODIUM 100 MG CAPSULE PO PRN (15:55)
[2021-12-25] MEDS ORDERED: ZALEPLON 5 MG CAPSULE PO PRN (15:55)
[2021-12-25] MEDS ORDERED: ONDANSETRON 4 MG/2 ML VIAL IV PRN (15:55)
[2021-12-25 16:04] LABS: Band Neutrophils 2 % (0-10); Eosinophils 9 % (0-10); Hypochromia Slight; Lymphocytes 4 % (20-55); Platelet Estimate Adequate; Segmented Neutrophils 77 % (50-85); Total Cells Counted 100
[2021-12-25] MEDS ORDERED: DEXTROSE 10% 250 ML BAG IV PRN (16:16)
[2021-12-25 17:06] LABS: Folate 5.47 NG/ML (5.38-24.0)
[2021-12-25 17:27] LABS: % Iron Saturation 24.5 % (18-50); Ferritin 4398.6 ng/mL (26-388)
[2021-12-25] MEDS: SODIUM CHLORIDE 0.45% 1,000 ML IV SCH (18:06)
[2021-12-25] MEDS: ENOXAPARIN 40 MG/0.4 ML SYRINGE SUBCUT SCH (18:06)
[2021-12-25] MEDS: ACETAMINOPHEN 325 MG TABLET PO PRN (21:42)
[2021-12-26 05:31] LABS: Basophils # 0.1 10*3/uL (0.0-0.2); Basophils % 0.7 % (0.0-0.8); Eosinophils % 7.4 % (0.00-10.9); Hematocrit 35.9 VOL% (42.0-52.0); Hemoglobin 11.3 GM/DL (14.0-18.0); Immature Granulocytes Absolute 0.14 #; Lymphocytes # 1.3 10*3/uL (1.4-4.0); Lymphocytes % 9.6 % (21.2-54.2); Mean Corpuscular HGB Conc 31.5 GM/DL (32-36); Mean Corpuscular Volume 88.2 FL (87-102); Mean Platelet Volume 9.6 FL (9.6-12.0); Monocytes % 7.9 % (1.7-12.7); Neutrophils % 73.4 % (38.7-73.9); Platelet Count 212 T/CUMM (130-400); Red Blood Count 4.07 MC/CUMM (3.8-5.5); Red Cell Distribution Width 14.6 % (9.3-17.3); White Blood Count 13.9 T/CUMM (4-12)
[2021-12-26] MEDS: ACETAMINOPHEN 325 MG TABLET PO PRN ×2 (05:46→17:33)
[2021-12-26 05:49] LABS: Albumin 2.1 G/DL (3.4-5.0); Calcium 8.8 MG/DL (8.5-10.1); Potassium 3.6 MMOL/L (3.5-5.1); Total Protein 7.1 G/DL (6.4-8.2)
[2021-12-26 05:57] LABS: Risk Ratio 5.95
[2021-12-26 06:07] LABS: Band Neutrophils 1 % (0-10); Eosinophils 8 % (0-10); Lymphocytes 13 % (20-55); Platelet Estimate Normal; Segmented Neutrophils 68 % (50-85); Total Cells Counted 100
[2021-12-26 06:10] LABS: AFP Tumor 2.7 NG/ML (0-8); Cancer Antigen 19-9 85.97 U/ML (0-35); Carcinoembryonic Antigen 310.9 NG/ML (0.0-5.0)
[2021-12-26] MEDS: SODIUM CHLORIDE 0.45% 1,000 ML IV SCH ×2 (10:30→13:02)
[2021-12-26] MEDS: ENOXAPARIN 40 MG/0.4 ML SYRINGE SUBCUT SCH (17:31)
[2021-12-27] MEDS: ACETAMINOPHEN 325 MG TABLET PO PRN ×2 (00:27→23:33)
[2021-12-27] MEDS: SODIUM CHLORIDE 0.45% 1,000 ML IV SCH ×3 (00:30→18:38)
[2021-12-27 05:19] LABS: Basophils # 0.1 10*3/uL (0.0-0.2); Eosinophils % 8.4 % (0.00-10.9); Hematocrit 35.4 VOL% (42.0-52.0); Hemoglobin 11.4 GM/DL (14.0-18.0); Immature Granulocytes % 1.1 %; Immature Granulocytes Absolute 0.14 #; Lymphocytes # 1.1 10*3/uL (1.4-4.0); Lymphocytes % 9.3 % (21.2-54.2); Mean Corpuscular HGB Conc 32.2 GM/DL (32-36); Mean Corpuscular Volume 87.8 FL (87-102); Mean Platelet Volume 9.6 FL (9.6-12.0); Monocytes % 7.2 % (1.7-12.7); Platelet Count 220 T/CUMM (130-400); Red Blood Count 4.03 MC/CUMM (3.8-5.5); Red Cell Distribution Width 14.6 % (9.3-17.3); White Blood Count 12.3 T/CUMM (4-12)
[2021-12-27 05:28] LABS: INR 1.4
[2021-12-27 05:54] LABS: Bilirubin,Total 1.4 MG/DL (0.20-1.00); Calcium 8.4 MG/DL (8.5-10.1); Osmolality,Calculated 272.7 MOS/KG (273-304); Potassium 3.4 MMOL/L (3.5-5.1); Total Protein 6.9 G/DL (6.4-8.2)
[2021-12-27 05:56] LABS: Band Neutrophils 2 % (0-10); Eosinophils 9 % (0-10); Hypochromia Slight; Lymphocytes 12 % (20-55); Microcytosis Slight; Platelet Estimate Adequate; Segmented Neutrophils 71 % (50-85); Total Cells Counted 100
[2021-12-27] MEDS: ENOXAPARIN 40 MG/0.4 ML SYRINGE SUBCUT SCH (19:06)
[2021-12-28 05:27] LABS: INR 1.4
[2021-12-28] MEDS ORDERED: SODIUM CHLORIDE 0.45% 1,000 ML IV SCH (09:30)
[2021-12-28] MEDS ORDERED: DIAZEPAM 5 MG TABLET PO ONE (10:00)
[2021-12-28] MEDS: SODIUM CHLORIDE 0.45% 1,000 ML IV SCH (12:59)
[2021-12-28] MEDS ORDERED: MORPHINE 2 MG/1 ML SYRINGE IV PRN (16:52)
[2021-12-28] MEDS: carvediloL 6.25 MG TABLET PO SCH ×2 (17:39→20:56)
[2021-12-28] MEDS: ENOXAPARIN 40 MG/0.4 ML SYRINGE SUBCUT SCH (20:56)
[2021-12-29] MEDS: SODIUM CHLORIDE 0.45% 1,000 ML IV SCH ×2 (04:27→20:03)
[2021-12-29 05:35] LABS: Basophils # 0.1 10*3/uL (0.0-0.2); Basophils % 0.9 % (0.0-0.8); Eosinophils # 1.1 10*3/uL (0.0-0.87); Eosinophils % 9.1 % (0.00-10.9); Hematocrit 33.5 VOL% (42.0-52.0); Hemoglobin 10.6 GM/DL (14.0-18.0); Immature Granulocytes % 1.3 %; Immature Granulocytes Absolute 0.15 #; Lymphocytes # 1.2 10*3/uL (1.4-4.0); Lymphocytes % 10.5 % (21.2-54.2); Mean Corpuscular HGB Conc 31.6 GM/DL (32-36); Mean Corpuscular Volume 88.6 FL (87-102); Mean Platelet Volume 10.1 FL (9.6-12.0); Monocytes % 8.9 % (1.7-12.7); Neutrophils % 69.3 % (38.7-73.9); Platelet Count 199 T/CUMM (130-400); Red Blood Count 3.78 MC/CUMM (3.8-5.5); White Blood Count 11.8 T/CUMM (4-12)
[2021-12-29 05:57] LABS: Band Neutrophils 2 % (0-10); Eosinophils 11 % (0-10); Hypochromia 1+; Lymphocytes 4 % (20-55); Microcytosis 1+; Platelet Estimate Adequate; Segmented Neutrophils 73 % (50-85); Total Cells Counted 100
[2021-12-29 06:12] LABS: Albumin 1.8 G/DL (3.4-5.0); Bilirubin,Total 1.2 MG/DL (0.20-1.00); Calcium 8.5 MG/DL (8.5-10.1); Potassium 3.8 MMOL/L (3.5-5.1); Total Protein 6.7 G/DL (6.4-8.2)
[2021-12-29] MEDS: carvediloL 6.25 MG TABLET PO SCH ×2 (10:02→20:01)
[2021-12-29] MEDS: amLODIPine 5 MG TABLET PO SCH (10:03)
[2021-12-29] MEDS: ENOXAPARIN 40 MG/0.4 ML SYRINGE SUBCUT SCH (20:01)
[2021-12-30] MEDS: amLODIPine 5 MG TABLET PO SCH (09:10)
[2021-12-30] MEDS: carvediloL 6.25 MG TABLET PO SCH (09:11)
[2021-12-30 12:37] VITALS: BP 126/56
== END 2021-12-30 13:27 | disposition home or self-care (01) ==
LOC: N.ED 11:40 → N.EDINP 11:40 → SUATTDRO 16:17 → N.5E 16:34
PROVIDERS: ADMIT Hospitalist; ATTEND Internal Medicine

== ENCOUNTER 2022-01-13 10:03 | Inpatient (IN) ==
[2022-01-13 11:27] LABS: Albumin 2.1 G/DL (3.4-5.0); Bilirubin,Total 4.3 MG/DL (0.20-1.00); Calcium 8.9 MG/DL (8.5-10.1); Osmolality,Calculated 282.8 MOS/KG (273-304); Potassium 5.5 MMOL/L (3.5-5.1); Thyroid Stimulating Hormone 0.7 uIU/ml (0.358-3.74)
[2022-01-13 12:04] LABS: Basophils # 0.1 10*3/uL (0.0-0.2); Basophils % 0.2 % (0.0-0.8); Eosinophils # 0.1 10*3/uL (0.0-0.87); Eosinophils % 0.3 % (0.00-10.9); Hematocrit 37.2 VOL% (42.0-52.0); Hemoglobin 12.1 GM/DL (14.0-18.0); Immature Granulocytes % 1.9 %; Immature Granulocytes Absolute 0.44 #; Lymphocytes # 0.6 10*3/uL (1.4-4.0); Lymphocytes % 2.6 % (21.2-54.2); Mean Corpuscular HGB Conc 32.5 GM/DL (32-36); Mean Corpuscular Volume 86.1 FL (87-102); Mean Platelet Volume 10.7 FL (9.6-12.0); Monocytes % 3.8 % (1.7-12.7); Neutrophils % 91.2 % (38.7-73.9); Platelet Count 99 T/CUMM (130-400); Red Blood Count 4.32 MC/CUMM (3.8-5.5); Red Cell Distribution Width 18.3 % (9.3-17.3); White Blood Count 23.8 T/CUMM (4-12)
[2022-01-13 12:26] LABS: Band Neutrophils 1 % (0-10); Eosinophils 1 % (0-10); Lymphocytes 2 % (20-55); Segmented Neutrophils 92 % (50-85); Total Cells Counted 100
[2022-01-13 12:27] LABS: Platelet Estimate Decreased
[2022-01-13 13:36] LABS: Bilirubin,Urine Small mg/dL (Negative); Blood, Urine Trace mg/dL (Negative); Glucose,Urine (UA) Negative (Negative); Ketones,Urine 30 mg/dL (Negative); Nitrite,Urine Negative (Negative); Protein,Urine 30 mg/dL (Negative); Urine Appearance Cloudy (Clear); Urine Color Yellow (Yellow); Urine pH 8.5 (4.5-8.0)
[2022-01-13 13:41] LABS: Bacteria,Urine Many /HPF (Few); Hyaline Casts,Urine 29 /LPF (0-3); Mucus,Urine Occasional /LPF (Occasional); RBC,Urine 4 /HPF (0-4); Squamous Epithelial Cell,Urine Occasional /HPF (0-10)
[2022-01-13] MEDS ORDERED: ONDANSETRON 4 MG/2 ML VIAL IV STA (14:40)
[2022-01-13] MEDS ORDERED: HYDROmorphone 1 MG/1 ML SYRINGE IV STA (14:40)
[2022-01-13] MEDS ORDERED: ONDANSETRON 4 MG/2 ML VIAL ONE (14:41)
[2022-01-13] MEDS ORDERED: ONDANSETRON 4 MG/2 ML VIAL IV PRN (14:47)
[2022-01-13] MEDS ORDERED: GLUCAGON 1 MG VIAL IM PRN (14:47)
[2022-01-13] MEDS ORDERED: cefTRIAXone 1,000 MG VIAL IV SCH (15:00)
[2022-01-13] MEDS ORDERED: DEXTROSE 10% 250 ML BAG IV PRN (15:13)
[2022-01-13] MEDS: cefTRIAXone 1,000 MG in SODIUM CHLORIDE 0.9% 100 ML IV SCH (15:20)
[2022-01-13] MEDS ORDERED: fentaNYL 25 MCG/HR PATCH TRANSDERM SCH (16:00)
[2022-01-13] MEDS ORDERED: FLUCONAZOLE INJ 100 MG/50 ML PREMIX IV SCH (16:00)
[2022-01-13] MEDS ORDERED: PANTOPRAZOLE 40 MG TABLET PO ONE (16:12)
[2022-01-13] MEDS: SODIUM CHLORIDE 0.9% 1,000 ML IV SCH (16:23)
[2022-01-13] MEDS: PANTOPRAZOLE 40 MG TABLET PO SCH (20:58)
[2022-01-14] MEDS: SODIUM CHLORIDE 0.9% 1,000 ML IV SCH ×2 (02:00→09:23)
[2022-01-14] MEDS ORDERED: HYDROmorphone 1 MG/1 ML SYRINGE IV ONE (05:32)
[2022-01-14 05:58] LABS: Basophils % 0.2 % (0.0-0.8); Eosinophils # 0.1 10*3/uL (0.0-0.87); Eosinophils % 0.6 % (0.00-10.9); Hematocrit 35.3 VOL% (42.0-52.0); Hemoglobin 11.6 GM/DL (14.0-18.0); Immature Granulocytes Absolute 0.38 #; Lymphocytes # 0.5 10*3/uL (1.4-4.0); Lymphocytes % 2.6 % (21.2-54.2); Mean Corpuscular HGB Conc 32.9 GM/DL (32-36); Mean Corpuscular Volume 85.9 FL (87-102); Mean Platelet Volume 12.2 FL (9.6-12.0); Monocytes % 4.1 % (1.7-12.7); Neutrophils % 90.5 % (38.7-73.9); Platelet Count 76 T/CUMM (130-400); Red Blood Count 4.11 MC/CUMM (3.8-5.5); Red Cell Distribution Width 18.6 % (9.3-17.3); White Blood Count 18.9 T/CUMM (4-12)
[2022-01-14 06:20] LABS: Band Neutrophils 3 % (0-10); Lymphocytes 1 % (20-55); Nucleated Red Blood Cells 1 (0-5); Platelet Estimate Decreased; Segmented Neutrophils 90 % (50-85); Total Cells Counted 100
[2022-01-14 06:26] LABS: Albumin 2.1 G/DL (3.4-5.0); Bilirubin,Total 4.6 MG/DL (0.20-1.00); Calcium 8.2 MG/DL (8.5-10.1); Osmolality,Calculated 282.5 MOS/KG (273-304); Potassium 5.7 MMOL/L (3.5-5.1); Total Protein 6.2 G/DL (6.4-8.2)
[2022-01-14] MEDS: PANTOPRAZOLE 40 MG TABLET PO SCH ×2 (09:23→22:06)
[2022-01-14] MEDS ORDERED: fentaNYL 50 MCG/HR PATCH TRANSDERM SCH (10:45)
[2022-01-14] MEDS: SODIUM ZIRCONIUM CYCLOSILICATE 10 GM PACK PO SCH ×2 (15:17→22:06)
[2022-01-14] MEDS: cefTRIAXone 1,000 MG in SODIUM CHLORIDE 0.9% 100 ML IV SCH (15:18)
[2022-01-15] MEDS: SODIUM CHLORIDE 0.9% 1,000 ML IV SCH ×2 (01:35→09:27)
[2022-01-15] MEDS: SODIUM ZIRCONIUM CYCLOSILICATE 10 GM PACK PO SCH (09:28)
[2022-01-15] MEDS: PANTOPRAZOLE 40 MG TABLET PO SCH (09:28)
[2022-01-15] MEDS ORDERED: ONDANSETRON 4 MG TABLET PO PRN (12:39)
[2022-01-15] MEDS ORDERED: fentaNYL 75 MCG/HR PATCH TRANSDERM SCH (13:00)
[2022-01-15 15:32] VITALS: BP 117/83
[2022-01-15] MEDS ORDERED: POLYETHYLENE GLYCOL POWDER 17 GM PACK PO SCH (21:00)
[2022-01-15] MEDS ORDERED: CIPROFLOXACIN 500 MG TABLET PO SCH (21:00)
[2022-01-15] MEDS ORDERED: DOCUSATE SODIUM 100 MG CAPSULE PO SCH (21:00)
[2022-01-16] MEDS ORDERED: LINACLOTIDE 145 MCG CAPSULE PO SCH (07:30)
== END 2022-01-15 16:50 | disposition hospice, home (50) | DRG 181 ==
LOC: EDBD → EDUNIT# → N.ED 10:03 → SUATTDRO 14:47 → N.5E 14:47
PROVIDERS: ADMIT Internal Medicine; ATTEND Hospitalist